=== PATIENT | female | born 1965 | race Caucasian/White ===

== ENCOUNTER 2018-04-13 22:31 | Inpatient (IN) | payer MEDICAID ==
[~2018-04-13] VITALS: Ht 154.9 cm; Wt 93.2 kg
[2018-04-13 22:37] VITALS: Ht 154.9 cm; Wt 93.2 kg
[2018-04-13 23:20] LABS: BASOPHIL % 0.5 % (0-2); PLATELET COUNT 205 x10^3mcL (130-400); RED CELL DISTRIBUTION WIDTH 13.8 % (11.5-14.5)
[2018-04-13 23:29] LABS: CALCIUM 8.4 mg/dL (8.5-10.1); CARBON DIOXIDE 26.8 mmol/L (21-32); CHLORIDE SERUM 104 mmol/L (98-107); CREATININE SERUM 0.9 mg/dL (0.6-1.0); GFR1 > 60 mL/min; GLUCOSE SERUM 323 mg/dL (74-106); POTASSIUM SERUM 3.6 mmol/L (3.5-5.1); SODIUM SERUM 139 mmol/L (136-145)
[2018-04-13 23:33] LABS: ALKALINE PHOSPHATASE 120 U/L (46-116); ALT/SGPT 17 U/L (14-59); AST/SGOT 5 U/L (15-37); BILIRUBIN TOTAL 0.22 mg/dL (0.20-1.00); TOTAL PROTEIN, SERUM 7.9 g/dL (6.4-8.2)
[2018-04-13 23:36] LABS: ALBUMIN 3.3 g/dL (3.4-5.0)
[2018-04-14 02:54] LABS: MAGNESIUM 1.8 mg/dL (1.8-2.4); PHOSPHOROUS 3.4 mg/dL (2.5-4.9)
[2018-04-14 02:56] LABS: CHOLESTEROL/HDL RATIO 4.8
[2018-04-14 03:04] LABS: T3 TOTAL 1.3 ng/mL
[2018-04-14 03:05] LABS: FREE T4 1.08 ng/dL (0.76-1.46); T4(THYROXINE) 8.2 ug/dL (4.7-13.3)
[2018-04-14] MEDS ORDERED: LIPI20 PO (03:49)
[2018-04-14] MEDS ORDERED: CLOPIDOGREL75 M1 PO (03:49)
[2018-04-14] MEDS ORDERED: ZESTRIL20 MG PO (03:49)
[2018-04-14] MEDS ORDERED: CARVEDILOL25 M1 PO (03:50)
[2018-04-14] MEDS ORDERED: ASPIR LOW81 MG PO (03:50)
[2018-04-14 04:11] LABS: microscopic required? YES; urine erythrocyte TRACE (NEGATIVE)
[2018-04-14 04:19] LABS: AMPHETAMINE QUAL UR NONE DETECTED (See below)
[2018-04-14 07:00] LABS: BASOPHIL % 0.5 % (0-2); PLATELET COUNT 198 x10^3mcL (130-400); RED CELL DISTRIBUTION WIDTH 13.3 % (11.5-14.5)
[2018-04-14 07:31] LABS: CALCIUM 8.6 mg/dL (8.5-10.1); CARBON DIOXIDE 23.6 mmol/L (21-32); CHLORIDE SERUM 104 mmol/L (98-107); CREATININE SERUM 0.8 mg/dL (0.6-1.0); GFR1 > 60 mL/min; GLUCOSE SERUM 143 mg/dL (74-106); POTASSIUM SERUM 3.2 mmol/L (3.5-5.1); SODIUM SERUM 138 mmol/L (136-145)
[2018-04-14 09:36] VITALS: BP 181/88
[2018-04-14 09:37] VITALS: BP 191/88
[2018-04-14 10:55] VITALS: BP 126/63
[2018-04-14 13:49] VITALS: BP 126/63
[2018-04-14 14:27] VITALS: BP 104/59
== END 2018-04-14 14:45 | disposition home or self-care (01) | DRG 203 ==
LOC: ED 22:31 → DU 04-14 01:09
PROVIDERS: Emergency Medicine; General Practice
DX: M94.0 Chondrocostal junction syndrome [Tietze] (principal); E11.65 Type 2 diabetes mellitus with hyperglycemia; K21.9 Gastro-esophageal reflux disease without esophagitis; I10 Essential (primary) hypertension; E78.5 Hyperlipidemia, unspecified; E02 Subclinical iodine-deficiency hypothyroidism; E66.9 Obesity, unspecified; Z68.35 Body mass index [BMI] 35.0-35.9, adult
CPT/HCPCS: 82962; 83880; 84439; 85378; J1815; J2270; J2405; J7030; Q0092